=== PATIENT | female | born 1995 | race Caucasian/White ===

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

== ENCOUNTER → 2021-01-30 | Outpatient (CLI) | payer OTHER ==
[~2021-01-30] MED LIST: COLACE 100MG C100 MG PO; IBUPROFEN600 MG PO; LEXAPRO20 MG PO; LORTAB 5-325 M1 EACH PO; PHENERGAN 12.12.5 M1 PO; PREDNISONE 50 M50 MG PO; PRENATAL VITAM1 EAC8 PO; VIBRAMYCIN100 MG PO; VISTARIL25 MG PO
== END ==
LOC: GENOP 16:35
DX: O36.8130 Decreased fetal movements, third trimester, not applicable or unspecified (principal); O10.913 Unspecified pre-existing hypertension complicating pregnancy, third trimester; O99.353 Diseases of the nervous system complicating pregnancy, third trimester; G43.909 Migraine, unspecified, not intractable, without status migrainosus; O99.343 Other mental disorders complicating pregnancy, third trimester; F32.A Depression, unspecified; F41.9 Anxiety disorder, unspecified; Z3A.28 28 weeks gestation of pregnancy
CPT/HCPCS: G0463

== ENCOUNTER 2021-03-27 22:57 | Outpatient (CLI) | payer OTHER | END 2021-03-28 01:58 | disposition home or self-care (01) | LOC: GENOP 22:57 | DX: O47.03 False labor before 37 completed weeks of gestation, third trimester (principal); O16.3 Unspecified maternal hypertension, third trimester; O99.343 Other mental disorders complicating pregnancy, third trimester; F32.A Depression, unspecified; O99.353 Diseases of the nervous system complicating pregnancy, third trimester; G43.909 Migraine, unspecified, not intractable, without status migrainosus; Z3A.36 36 weeks gestation of pregnancy | CPT/HCPCS: G0463 ==

== ENCOUNTER 2021-04-11 13:02 | Outpatient (CLI) | payer OTHER | END 2021-04-11 14:40 | disposition home or self-care (01) | LOC: GENOP 13:02 | DX: O36.8130 Decreased fetal movements, third trimester, not applicable or unspecified (principal); O99.891 Other specified diseases and conditions complicating pregnancy; R22.43 Localized swelling, mass and lump, lower limb, bilateral; R22.33 Localized swelling, mass and lump, upper limb, bilateral; O10.913 Unspecified pre-existing hypertension complicating pregnancy, third trimester; O99.343 Other mental disorders complicating pregnancy, third trimester; F32.A Depression, unspecified; F41.9 Anxiety disorder, unspecified; Z3A.38 38 weeks gestation of pregnancy | CPT/HCPCS: 59025; 81001 ==

== ENCOUNTER 2021-04-15 16:59 | Inpatient (IN) | payer OTHER ==
[~2021-04-15] VITALS: Ht 175.3 cm; Wt 126.1 kg
[2021-04-15 18:51] LABS: HEMOGLOBIN 11.2 gm/dl (12.3-15.3); RED BLOOD COUNT 4.04 M/UL (4.00-5.10); WHITE BLOOD COUNT 11.5 K/UL (4.5-11.0)
[2021-04-15] MEDS ORDERED: LABETALOL HCL100 MG PO (20:28)
[2021-04-15] MEDS ORDERED: IRON325 M1 PO (20:29)
[2021-04-15] MEDS ORDERED: PRENATAL VITAM1 EAC6 PO (20:30)
[2021-04-15] MEDS ORDERED: LEXAPRO20 MG PO (20:33)
[2021-04-15] MEDS ORDERED: ASPIRIN CHEWABL81 MG PO (20:34)
[2021-04-17 06:27] LABS: HEMOGLOBIN 10.1 gm/dl (12.3-15.3)
== END 2021-04-18 13:50 | disposition home or self-care (01) | DRG 805 ==
LOC: GENOP 16:59 → OB 18:39
PROVIDERS: ADMIT Obstetrics & Gynecology
PROC: 8E0ZXY6 Isolation (ICD-10-PCS; 2021-04-15)
PROC: 10907ZC Drainage of Amniotic Fluid, Therapeutic from Products of Conception, Via Natural or Artificial Opening (ICD-10-PCS; principal; 2021-04-17)
PROC: 10E0XZZ Delivery of Products of Conception, External Approach (ICD-10-PCS; 2021-04-17)
PROC: 0KQM0ZZ Repair Perineum Muscle, Open Approach (ICD-10-PCS; 2021-04-17)
PROC: 3E033VJ Introduction of Other Hormone into Peripheral Vein, Percutaneous Approach (ICD-10-PCS; 2021-04-17)
PROC: 10H07YZ Insertion of Other Device into Products of Conception, Via Natural or Artificial Opening (ICD-10-PCS; 2021-04-17)
PROC: 4A1H7CZ Monitoring of Products of Conception, Cardiac Rate, Via Natural or Artificial Opening (ICD-10-PCS; 2021-04-17)
DX: O98.52 Other viral diseases complicating childbirth (principal); U07.1 COVID-19; Z37.0 Single live birth; O10.92 Unspecified pre-existing hypertension complicating childbirth; O99.354 Diseases of the nervous system complicating childbirth; O99.02 Anemia complicating childbirth; D64.9 Anemia, unspecified; O99.214 Obesity complicating childbirth; E66.01 Morbid (severe) obesity due to excess calories; G43.909 Migraine, unspecified, not intractable, without status migrainosus; O99.344 Other mental disorders complicating childbirth; F32.A Depression, unspecified; Z3A.38 38 weeks gestation of pregnancy; O70.0 First degree perineal laceration during delivery; Z83.3 Family history of diabetes mellitus; Z82.5 Family history of asthma and other chronic lower respiratory diseases; Z82.49 Family history of ischemic heart disease and other diseases of the circulatory system; Z80.8 Family history of malignant neoplasm of other organs or systems; Z82.0 Family history of epilepsy and other diseases of the nervous system
CPT/HCPCS: 36415; 81001; 82800; 85014; 85018; 85025; J0595; J2405; J2590; J7120